=== PATIENT | male | born 1955 | race Caucasian/White ===

== ENCOUNTER → 2017-01-18 | Outpatient (CLI) | payer BC ==
--- NOTE | 2017-01-18 08:58 | US ---
EXAMINATION TYPE: US abdomen complete DATE OF EXAM: 01/18/2017 COMPARISON: NONE CLINICAL HISTORY: R16.1 Splenomegaly, not elsewhere classified. Splenomegaly, history of cholecystect jerald EXAM MEASUREMENTS: Liver Length: 16.4 cm Gallbladder Wall: surgically absent CBD: 0.4 cm Spleen: 16.5 cm Right Kidney: 11.7 x 5.1 x 4.9 cm Left Kidney: 12.8 x 5.2 x 7.3 cm Pancreas: obscured by overlying midline bowel gas Liver: visualized portions wnl, scanned intercostally, limited by rib shadowing Gallbladder: surgically absent Evidence for sonographic Gaitan's sign: no CBD: visualized portions wnl, limited by overlying bowel gas Spleen: enlarged at 16.5cm Right Kidney: 1.6 x 1.5 x 1.4cm hypoechoic area mid inferior pole Left Kidney: 3.5 x 2.9 x 2.7cm hypoechoic area with internal echoes mid superior pole, multiple cyst ic areas medial mid pole with largest measuring 1.9cm, small 1.0cm cyst inferior pole Upper IVC: wnl Abd Aorta: visualized portions wnl, limited by overlying midline bowel gas Splenomegaly noted. Pancreas of secured by bowel gas. Hypoechoic lesions within both kidneys. IMPRESSION: 1. Postcholecystectomy. 2. Splenomegaly. 3. Hypoechoic lesions within the kidneys do not meet the criteria of simple cysts particularly on the left. This may be technical. There do appear to be evidence of cysts on a previous CT scan dating ba to 2013. This could be correlated with a new CT for confirmation.
== END | disposition home or self-care (01) ==
LOC: RADUSWWP 07:07
PROVIDERS: ATTEND Internal Medicine
DX: R16.1 Splenomegaly, not elsewhere classified (principal); N28.89 Other specified disorders of kidney and ureter; Z90.49 Acquired absence of other specified parts of digestive tract
CPT/HCPCS: 76700

== ENCOUNTER → 2020-05-15 | Outpatient (CLI) | payer BC, MEDICARE ==
[2020-05-15 07:51] LABS: African American GFR (CKD) >90 (>60 ml/min/1.73 sqM); Blood Urea Nitrogen 19 mg/dL (9-20); Non-African American GFR(CKD) >90 (>60 ml/min/1.73 sqM)
--- NOTE | 2020-05-15 18:20 | CT ---
EXAMINATION TYPE: CT abdomen pelvis w con DATE OF EXAM: 05/15/2020 COMPARISON: 06/15/2013 INDICATION: Leukemia...CLL DLP: 1223.9 mGycm, Automated exposure control for dose reduction was used. CONTRAST: 100 ml mL of Isovue 300. Study performed with Oral Contrast TECHNIQUE: Axial images were obtained from above the diaphragm to the pubic rami in the axial plane a t 5 mm thick sections. Reconstructed images are reviewed on the computer in the coronal plane. FINDINGS: Limited CT sections are obtained the lung bases. The lung bases are clear. CT ABDOMEN: Liver: Normal Spleen: Splenomegaly is present. Measures 21.1 cm in craniocaudal dimension. Normal less than 12.5 cm . Pancreas: Normal Adrenal glands: The adrenal glands are normal. Gallbladder: Surgically absent Kidneys: No masses are evident. No hydronephrosis is present. There is a 4.5 cm cyst on the posteri or lateral upper pole left kidney measuring 3 Hounsfield units. Peripelvic cysts are present bilatera lly. Delayed images were obtained through the kidneys, which remain unremarkable. Aorta: Vascular calcification is within the aorta. Inferior vena cava: Normal. CT PELVIS: Loops of bowel within the abdomen and pelvis are normal. Fecal debris is in the colon There are lo ops of bowel which are incompletely distended or lack oral contrast limiting their evaluation. Appendix: Not visualized. No suspicious inflammatory change is evident. Urinary bladder: Normal. Genitourinary structures: Prostate is surgically absent Osseous structures: No suspicious lytic or sclerotic lesions. IMPRESSIONS: 1. Marked splenomegaly.
== END | disposition home or self-care (01) ==
LOC: RADCTMAIN 06:56
PROVIDERS: ATTEND Internal Medicine Hematology & Oncology
DX: R16.1 Splenomegaly, not elsewhere classified (principal); C91.10 Chronic lymphocytic leukemia of B-cell type not having achieved remission
CPT/HCPCS: 82565; 84520; 74177; 36415; Q9967

== ENCOUNTER 2021-04-05 08:02 | Emergency (ER) | payer MEDICARE ==
[2021-04-05 08:17] VITALS: BP 146/80; PULSE 96; RESP 18; TEMP 97.8
[2021-04-05] MEDS ORDERED: LIDOCAINE 4% CREAM 5 GM TUBE TOPICAL ONE (08:32)
--- NOTE | 2021-04-05 08:36 | ED ---
General Adult HPI - General Chief complaint: Skin/Abscess/Foreign Body Stated complaint: Hemorrhoid Time Seen by Provider: 04/05/21 08:05 Source: patient Mode of arrival: ambulatory Limitations: no limitations - History of Present Illness Initial comments: Dictation was produced using [employer] dictation software. please excuse any grammatical, word or spelling errors. Chief Complaint: 66-year-old male presents emergency department for anal pain History of Present Illness: He is 66-year-old male who presents emergency department for anal pain. Symptoms have been ongoing for the last 4-5 days. Patient reports that his symptoms were mild in the beginning over the last 2 days his symptoms got significantly worse. Painful when he uses the bathroom. Patient does feel a swelling in that area. Patient has been using conservative management at home with warm sitz baths. Patient is a physician. He is concerned that perhaps his symptoms reflected an abscess and wanted to be evaluated. He does have history of blood cell disorder. No fevers. No nausea. No vomiting. No abdominal pain. The ROS documented in this emergency department record has been reviewed and confirmed by me. Those systems with pertinent positive or negative responses have been documented in the HPI. All other systems are other negative and/or no ncontributory. PHYSICAL EXAM: General Impression: Alert and oriented x3, not in acute distress HEENT: Normocephalic atraumatic, extra-ocular movements intact, pupils equal and reactive to light bilaterally, mucous membranes moist. Cardiovascular: Heart regular rate and rhythm Chest: Able to complete full sentences, no retractions, no tachypnea Neurological: CN II-XII grossly intact, no focal motor or sensory deficits noted Skin: Intact with no visualized rashes Psych: Normal affect and mood Anus: Posterior midline anal fissure no active bleeding, altered swelling surrounding it, no erythema or fluctuance. No external hemorrhoid ED course: 66-year-old male presents to the emergency department for 4-5 days of anal pain. Clinical presentation consistent with anal fissure. Signs upon arr ival are within acceptable limits. Patient given topical lidocaine. Advised to continue using conservative management including sitz baths. Advised follow-up with his general surgeon. - Related Data Home Medications Medication Instructions Recorded Confirmed Atorvastatin [Lipitor] 20 mg PO HS 01/29/15 01/31/15 Fluticasone Propionate 1 spray NASAL HS 01/29/15 01/31/15 Levothyroxine Sodium [Synthroid] 100 mcg PO QAM 01/29/15 01/31/15 Mometasone Furoate [Asmanex] 220 mcg IH HS 01/29/15 01/31/15 Montelukast [Singulair] 10 mg PO HS 01/29/15 01/31/15 Omeprazole [PriLOSEC] 20 mg PO HS 01/29/15 01/31/15 Sertraline [Zoloft] 150 mg PO QAM 01/29/15 01/31/15 Allergies Allergy/AdvReac Type Severity Reaction Status Date / Time No Known Allergies Allergy Verified 04/05/21 08:18 Review of Systems ROS Statement: Those systems with pertinent positive or pertinent negative responses have been documented in the HPI. ROS Other: All systems not noted in ROS Statement are negative. Past Medical History Past Medical History: Asthma, Chest Pain / Angina, GERD/Reflux, Hyperlipidemia, Hypertension, Thyroid Disorder Additional Past Medical History / Comment(s): hemmorrhoids, marginal zone splenical lymphoma History of Any Multi-Drug Resistant Organisms: None Reported Past Surgical History: Bowel Resection, Cholecystectomy, Prostate Surgery Additional Past Surgical History / Comment(s): deviated septum repair. COLONOSCOPY Past Anesthesia/Blood Transfusion Reactions: No Reported Reaction Past Psychological History: Depression Smoking Status: Never smoker Past Alcohol Use History: Occasional Past Drug Use History: None Reported - Past Family History Father Family Medical History: Cancer General Exam Limitations: no limitations Course Vital Signs 04/05/21 08:14 Temperature 97.8 F Pulse Rate 96 Respiratory 18 Rate Blood Pressure 146/80 O2 Sat by Pulse 99 Oximetry Disposition Clinical Impression: Anal fissure Disposition: HOME SELF-CARE Condition: Good Instructions (If sedation given, give patient instructions): Anal Fissure (ED) Is patient prescribed a controlled substance at d/c from ED?: No Referrals: Morgan Mclaughlin MD [STAFF PHYSICIAN] - 1-2 days
== END 2021-04-05 08:46 | disposition home or self-care (01) ==
LOC: EC 08:02
DX: K60.2 Anal fissure, unspecified (principal); J45.909 Unspecified asthma, uncomplicated; K21.9 Gastro-esophageal reflux disease without esophagitis; I10 Essential (primary) hypertension; E78.5 Hyperlipidemia, unspecified; E07.9 Disorder of thyroid, unspecified; Z79.899 Other long term (current) drug therapy; Z79.890 Hormone replacement therapy
CPT/HCPCS: 99283

== ENCOUNTER → 2021-09-04 | Outpatient (CLI) | payer MEDICARE ==
[~2021-09-04] MED LIST: SODIUM CHLORIDE 0.9% 500 ML 500 ML in EMPTY BAG 1 BAG IV PRN; TIXAGEVIMAB/CILGAVIMAB (EUA) 300 MG/3 ML COMBO.PKG IM NR
[2021-09-04 09:42] VITALS: TEMP 98.5
[2021-09-04 10:33] VITALS: BP 119/74; PULSE 77; RESP 14
== END | disposition home or self-care (01) ==
LOC: PROCWHC3 09:23
PROVIDERS: ATTEND Family Medicine
DX: C91.10 Chronic lymphocytic leukemia of B-cell type not having achieved remission (principal); Z92.22 Personal history of monoclonal drug therapy
CPT/HCPCS: Q0220; M0220

== ENCOUNTER 2023-06-21 08:28 | Day surgery (SDC) | payer MEDICARE ==
[2023-06-20 10:53] VITALS: BMI 30.4
[~2023-06-21 08:28] MED LIST changes: +LIDOCAINE 1% (10MG/ML) FOR IV START INTRADERMA PRN; -SODIUM CHLORIDE 0.9% 500 ML 500 ML in EMPTY BAG 1 BAG IV PRN; -TIXAGEVIMAB/CILGAVIMAB (EUA) 300 MG/3 ML COMBO.PKG IM NR
[2023-06-21] MEDS: LACTATED RINGERS 1,000 ML IV SCH (08:56)
[2023-06-21] MEDS ORDERED: LIDOCAINE 1% INJ 10MG/ML (20 ML MDV) ONE (09:10)
[2023-06-21] MEDS ORDERED: PROPOFOL 10 MG/ML 20 ML VIAL IV ONE (09:10)
[2023-06-21 09:11] VITALS: PULSE 65; RESP 16; TEMP 97.2
--- NOTE | 2023-06-21 09:22 | P.PCN ---
Date of Procedure: 06/21/23 Procedure(s) Performed: BRIEF HISTORY: Patient is a 68-year-old, pleasant, white female scheduled for an upper endoscopy as a part of evaluation of long-standing history of GERD. His been on Prilosec 20 mg daily but recently symptoms of progressive beginning worse and has been having breathing difficulty and wheezing postprandially.. PROCEDURE PERFORMED: Esophagogastroduodenoscopy with biopsy. PREOPERATIVE DIAGNOSIS: Long-standing history of GERD. IV sedation per anesthesia. PROCEDURE: After informed consent was obtained, the patient was brought into the endoscopy unit. IV sedation was administered by Anesthesia under continuous monitoring. Initially the Olympus GIF-140 video endoscope was inserted into the mouth. Esophagus intubated without any difficulty. It was gradually advanced into the stomach and duodenum and carefully examined. The bulb and the second part of the duodenum appeared normal. The scope at this time was withdrawn to the stomach, adequately insufflated with air, and upon careful examination, mucosa of the antrum, had diffuse gastritis and biopsies were done from this area. Mucosa of the body, cardia and the fundus appeared normal. The scope was then withdrawn into the esophagus. The GE junction was located at 39 cm from the incisors. Small hiatal hernia noted. The entire length of esophagus appeared normal. Abscesses were done from the distal esophagus. There were no erosions or ulcerations see, biopsies were done from the distal esophagus n and the p atient tolerated the procedure well. IMPRESSION: 1. Mild diffuse antral gastritis. 2. Small hiatal hernia 3. No evidence of esophagitis or Johnson's esophagus3.. RECOMMENDATIONS: The findings of this examination were discussed with the patient as well as his family. Follow with the biopsy results. He was advised to continue with omeprazole 20 mg twice daily to be taken half hour before br eakfast and dinnertime and follow antireflux measures and use Pepcid 20 mg at bedtime if needed. Recommended diet Modification..
[2023-06-21 09:48] VITALS: BP 107/72
== END 2023-06-21 09:57 | disposition home or self-care (01) ==
LOC: ORWHC2ENDO 08:28
PROVIDERS: ATTEND Internal Medicine Gastroenterology
DX: K21.00 Gastro-esophageal reflux disease with esophagitis, without bleeding (principal); K29.50 Unspecified chronic gastritis without bleeding; K44.9 Diaphragmatic hernia without obstruction or gangrene; E78.5 Hyperlipidemia, unspecified; J45.909 Unspecified asthma, uncomplicated; E03.9 Hypothyroidism, unspecified; F32.A Depression, unspecified; Z79.890 Hormone replacement therapy; Z79.899 Other long term (current) drug therapy; Z79.51 Long term (current) use of inhaled steroids
CPT/HCPCS: 88305; 88342; 43239; J2001; J2704